=== PATIENT | male | born 1945 | race Caucasian/White ===

== ENCOUNTER 2021-07-15 21:18 | Emergency (ER) | payer BC ==
[~2021-07-15] VITALS: Ht 177.8 cm; Wt 99.3 kg
[2021-07-15 21:35] VITALS: BP_SYST 151
== END 2021-07-15 23:55 | disposition left against medical advice (07) ==
LOC: SED 21:18
DX: R04.0 Epistaxis (principal); Z53.21 Procedure and treatment not carried out due to patient leaving prior to being seen by health care provider